=== PATIENT | female | born 1960 | race Caucasian/White ===

== ENCOUNTER 2018-03-04 12:10 | Emergency (ER) | payer MEDICAID ==
[2018-03-04 12:35] VITALS: RESP 18
--- NOTE | 2018-03-04 12:49 | C.PDOC ---
History Of Present Illness 57 year old female presents to ED for evaluation after falling down some stairs. Patient reports walking down stairs when she twisted her right ankle, fell down the stairs, and landed on her buttocks. Denies fever, chills, hitting head on fall, headache, neck pain, weakness, numbness. Time Seen by Provider: 03/04/18 12:23 Chief Complaint (Nursing): Lower Extremity Problem/Injury History Per: Patient History/Exam Limitations: no limitations Onset/Duration Of Symptoms: Hrs Current Symptoms Are (Timing): Still Present Past Medical History Reviewed: Historical Data, Nursing Documentation, Vital Signs Vital Signs: Last Vital Signs Temp 98.1 F 03/04/18 12:16 Pulse 88 03/04/18 12:16 Resp 18 03/04/18 12:16 BP 200/89 H 03/04/18 12:16 Pulse Ox 100 03/04/18 12:16 Surgical History: No Surg Hx Family History: States: No Known Family Hx - Social History Hx Alcohol Use: No Hx Substance Use: No - Immunization History Hx Tetanus Toxoid Vaccination: No Hx Influenza Vaccination: No Hx Pneumococcal Vaccination: No Review Of Systems Except As Marked, All Systems Reviewed And Found Negative. Constitutional: Negative for: Fever, Chills, Other (Hitting head on fall. ) Musculoskeletal: Negative for: Neck Pain Neurological: Negative for: Weakness, Numbness, Headache Physical Exam - Physical Exam Appears: Non-toxic, No Acute Distress Skin: Warm, Dry Head: Atraumatic, Normacephalic Eye(s): bilateral: Normal Inspection Chest: Symmetrical, No Deformity Cardiovascular: Rhythm Regular Respiratory: Normal Breath Sounds, No Rales, No Rhonchi, No Wheezing Extremity: Swelling (Rigth foot), Other (Pain to palpation on right foot with ecchymosis on right lateral distal foot.) Neurological/Psych: Oriented x3 ED Course And Treatment O2 Sat by Pulse Oximetry: 100 (RA) Pulse Ox Interpretation: Normal - Other Rad x-ray right foot X-Ray: Interpreted by Me, Viewed By Me Interpretation: FINDINGS: BONES: Normal. No fracture. No definitive evidence of acute displaced fracture nor dislocation. The osseous structures appear grossly intact. JOINTS: Mild degenerative changes of the dorsal bones of the midfoot. SOFT TISSUES: There is soft tissue swelling most conspicuous dorsally at the level of the metatarsals. OTHER FINDINGS: None. IMPRESSION: No evidence of acute displaced fracture nor dislocation. Soft tissue swelling most conspicuous dorsally at the level of the metatarsals. If symptoms persist or occult fracture suspected clinically recommend repeat radiographs in 5-10 days as most fractures should become radiographically evident in this timeframe. X-ray L-spine X-Ray: Interpreted by Me, Viewed By Me Interpretation: FINDINGS: BONES: No acute compression fractures no retropulsed fragments. Vertebral bodies exhibit relatively normal stature. Some minor fishmouth endplate deformities of the lower thoracic region noted. DISC SPACES: Mild multilevel degenerative spondylosis.. Small marginal anterolateral osteophyte formation. The facet joints are slightly hypertrophic L5-S1 through the L3-L4 levels in decreasing order of severity. OTHER FINDINGS: None. IMPRE SSION: . no acute fractures. Minor multilevel degenerative spondylosis as described. Medical Decision Making Medical Decision Making: Plan: * Tylenol * Right foot x-ray * L spine x-ray * In orthopaedic shoe and patient was taught crutch walking. Disposition Counseled Patient/Family Regarding: Studies Performed, Diagnosis, Need For Followup, Rx Given - Disposition Referrals: Casey Martínez MD [Staff Provider] - [facility] [Outside] [facility] [Outside] Disposition: HOME/ ROUTINE Disposition Time: 13:22 Condition: STABLE Additional Instructions: FOLLOW UP WITH ORTHOPEDIST NEXT WEEK FOR RE-EVALUATION AND OFFICIAL XRAY REPORT. REST, ICE FOR 20 MIN EVERY 2 HRS FOR 2 DAYS, KEEP FOOT ELEVATED AND USE CRUTCHES FOR WALKING. TAKE IBUPROFEN 600 MG EVERY 6-8 HRS WITH FOOD NEEDED FOR PAIN. IF SYMPTOMS GET WORSE OR ANY NEW CONCERNING SYMPTOMS DEVELOP RETURN TO ED. Prescriptions: Ibuprofen [Motrin Tab] 1 tab PO Q6H PRN #15 tab PRN Reason: Pain, Moderate (4-7) Instructions: Low Back Pain (DC), Foot Sprain (DC) Forms: [facility] (O[place]i), General Discharge Instructions - Clinical Impression Clinical Impression: Foot sprain, Low back pain - PA / PORT ENGINEER / Resident Statement MD/DO has reviewed & agrees with the documentation as recorded. - Scribe Statement The provider has reviewed the documentation as recorded by the Scribe Blaze Natarajan All medical record entries made by the Scribe were at my direction and personally dictated by me. I have reviewed the chart and agree that the record accurately reflects my personal performance of the history, physical exam, medical decision making, and the department course for this patient. I have also personally directed, reviewed, and agree with the discharge instructions and disposition.
[2018-03-04 13:35] VITALS: BP 171/73; PULSE 50; TEMP 98.2
[2018-03-04 13:36] VITALS: O2SAT 100
--- NOTE | 2018-03-04 16:09 | RAD ---
Date of service: 03/04/2018 PROCEDURE: Radiographs of the Lumbar Spine. HISTORY: pain p fall COMPARISON: No prior. FINDINGS: BONES: No acute compression fractures no retropulsed fragments. Vertebral bodies exhibit relatively normal stature. Some minor fishmouth endplate deformities of the lower thoracic region noted. DISC SPACES: Mild multilevel degenerative spondylosis.. Small marginal anterolateral osteophyte formation. The facet joints are slightly hypertrophic L5-S1 through the L3-L4 levels in decreasing order of severity OTHER FINDINGS: None. IMPRESSION: . no acute fractures. Minor multilevel degenerative spondylosis as described.
--- NOTE | 2018-03-04 16:10 | RAD ---
Date of service: 03/04/2018 PROCEDURE: Right Foot Radiographs. HISTORY: pain p fall COMPARISON: None. FINDINGS: BONES: Normal. No fracture. No definitive evidence of acute displaced fracture nor dislocation. The osseous structures appear grossly intact. JOINTS: Mild degenerative changes of the dorsal bones of the midfoot. SOFT TISSUES: There is soft tissue swelling most conspicuous dorsally at the level of the metatarsals. OTHER FINDINGS: None. IMPRESSION: No evidence of acute displaced fracture nor dislocation. Soft tissue swelling most conspicuous dorsally at the level of the metatarsals. If symptoms persist or occult fracture suspected clinically recommend repeat radiographs in 5-10 days as most fractures should become radiographically evident in this timeframe.
== END 2018-03-04 13:43 | disposition home or self-care (01) ==
LOC: EDSEX 12:10 → C.ER 12:10
DX: M54.5 Low back pain (principal); S93.601A Unspecified sprain of right foot, initial encounter; W10.9XXA Fall (on) (from) unspecified stairs and steps, initial encounter